=== PATIENT | male | born 1960 | race Caucasian/White ===

== ENCOUNTER 2017-09-27 16:24 | Observation (INO) | payer BC ==
[2017-09-27] MEDS: PSEUDOEPHEDRINE 30 MG TAB PO (17:00)
[2017-09-27] MEDS: ONDANSETRON 4MG/2ML VIAL (J2405) IV (17:16)
[2017-09-27] MEDS: MORPHINE 4 MG/ML 1ML VIAL (J2270) IV (17:16)
[2017-09-27] MEDS: PHENYLEPHRINE INJ 10MG/ML VIAL (J2370) SQ (19:21)
[2017-09-27 20:44] LABS: BASO # 0.1 10^3/uL (0.0-0.2); BASO % 0.8 % (0.0-1.0); EOS # 0.2 10^3/uL (0.0-0.50); EOS % 2.1 % (0.0-3.0); HEMATOCRIT 36.6 % (42.0-52.0); HEMOGLOBIN 12.7 g/dl (14.0-18.0); IMMATURE GRANULOCYTE % 0.5 % (0-3.0); LYMPH # 2.4 10^3/uL (1.5-4.5); LYMPH % 30.4 % (24.0-44.0); MEAN CORPUSCULAR HEMOGLOBIN 32.5 pg (27.0-33.0); MEAN CORPUSCULAR HGB CONC 34.7 g/dl (32.0-36.5); MEAN CORPUSCULAR VOLUME 93.6 fl (80.0-96.0); MONO # 0.6 10^3/uL (0.0-0.8); MONO % 7.1 % (0.0-5.0); NEUTROPHILS # 4.7 10^3/uL (1.8-7.7); NEUTROPHILS % 59.1 % (36.0-66.0); PLATELET COUNT, AUTOMATED 268 10^3/uL (150-450); RED BLOOD COUNT 3.91 10^6/uL (4.30-6.10); RED CELL DISTRIBUTION WIDTH 12.6 % (11.5-14.5)
[2017-09-27] MEDS: clonazePAM 1 MG TAB PO (21:00)
[2017-09-27 21:01] LABS: INR 0.97; PARTIAL THROMBOPLASTIN TIME 27.5 SECONDS (26.8-37.9)
[2017-09-27 21:09] LABS: ALBUMIN 3.6 GM/DL (3.2-5.2); ALBUMIN/GLOBULIN RATIO 1.33 (1.00-1.93); ALKALINE PHOSPHATASE 52 U/L (45-117); ALT/SGPT 39 U/L (12-78); ANION GAP 8 MEQ/L (8-16); BILIRUBIN,TOTAL 0.4 MG/DL (0.2-1.0); BLOOD UREA NITROGEN 14 MG/DL (7-18); CALCIUM LEVEL 8.3 MG/DL (8.5-10.1); CARBON DIOXIDE LEVEL 29 MEQ/L (21-32); CHLORIDE LEVEL 106 MEQ/L (98-107); CPK CREATINE PHOSPHOKINASE 64 U/L (39-308); CREATININE FOR GFR 0.79 MG/DL (0.70-1.30); GLOMERULAR FILTRATION RATE > 60.0 (>56); GLUCOSE, FASTING 91 MG/DL (70-100); MAGNESIUM LEVEL 2.1 MG/DL (1.8-2.4); POTASSIUM SERUM 3.9 MEQ/L (3.5-5.1); SODIUM LEVEL 143 MEQ/L (136-145); TOTAL PROTEIN 6.3 GM/DL (6.4-8.2); TROPONIN I < 0.02 NG/ML (< 0.10)
[2017-09-27 21:12] LABS: AST/SGOT 42 U/L (7-37); MB/CK RELATIVE INDEX 1.56 (< OR =4)
[2017-09-27] MEDS: zolPIDEM TARTRATE 5 MG TAB PO (22:30)
[2017-09-28] MEDS: ACETAMINOPHEN TAB 650MG DOSE (2X325MG) PO (01:04)
[2017-09-28 03:37] LABS: CPK CREATINE PHOSPHOKINASE 48 U/L (39-308); MB/CK RELATIVE INDEX 2.08 (< OR =4); TROPONIN I < 0.02 NG/ML (< 0.10)
[2017-09-28 06:52] LABS: BASO % 0.6 % (0.0-1.0); EOS # 0.2 10^3/uL (0.0-0.50); EOS % 2.2 % (0.0-3.0); HEMATOCRIT 36.9 % (42.0-52.0); HEMOGLOBIN 12.5 g/dl (14.0-18.0); IMMATURE GRANULOCYTE % 0.4 % (0-3.0); LYMPH # 1.8 10^3/uL (1.5-4.5); LYMPH % 26.5 % (24.0-44.0); MEAN CORPUSCULAR HEMOGLOBIN 32.1 pg (27.0-33.0); MEAN CORPUSCULAR HGB CONC 33.9 g/dl (32.0-36.5); MEAN CORPUSCULAR VOLUME 94.9 fl (80.0-96.0); MONO # 0.5 10^3/uL (0.0-0.8); MONO % 7.4 % (0.0-5.0); NEUTROPHILS # 4.3 10^3/uL (1.8-7.7); NEUTROPHILS % 62.9 % (36.0-66.0); PLATELET COUNT, AUTOMATED 246 10^3/uL (150-450); RED BLOOD COUNT 3.89 10^6/uL (4.30-6.10); RED CELL DISTRIBUTION WIDTH 12.6 % (11.5-14.5); WHITE BLOOD COUNT 6.9 10^3/uL (4.0-10.0)
[2017-09-28 07:18] LABS: ALBUMIN 3.3 GM/DL (3.2-5.2); ALBUMIN/GLOBULIN RATIO 1.22 (1.00-1.93); ALKALINE PHOSPHATASE 54 U/L (45-117); ALT/SGPT 31 U/L (12-78); ANION GAP 6 MEQ/L (8-16); AST/SGOT 20 U/L (7-37); BILIRUBIN,TOTAL 0.6 MG/DL (0.2-1.0); BLOOD UREA NITROGEN 15 MG/DL (7-18); CALCIUM LEVEL 8.2 MG/DL (8.5-10.1); CARBON DIOXIDE LEVEL 29 MEQ/L (21-32); CHLORIDE LEVEL 107 MEQ/L (98-107); CREATININE FOR GFR 0.93 MG/DL (0.70-1.30); GLOMERULAR FILTRATION RATE > 60.0 (>56); GLUCOSE, FASTING 113 MG/DL (70-100); MAGNESIUM LEVEL 2.2 MG/DL (1.8-2.4); POTASSIUM SERUM 4.2 MEQ/L (3.5-5.1); SODIUM LEVEL 142 MEQ/L (136-145)
[2017-09-28] MEDS: ESCITALOPRAM OXALATE 10 MG TAB (LEXAPRO) PO (08:48)
[2017-09-28] MEDS: ENOXAPARIN 40 MG/0.4 ML SYRINGE (J1650) SC (08:49)
[2017-09-28] MEDS: buPROPion (WELLBUTRIN SR) 100 MG SR TAB PO (08:49)
[2017-09-28 09:33] LABS: CPK CREATINE PHOSPHOKINASE 45 U/L (39-308); TROPONIN I < 0.02 NG/ML (< 0.10)
[2017-09-28 09:34] LABS: MB/CK RELATIVE INDEX 2.22 (< OR =4)
== END 2017-09-28 11:27 | disposition home or self-care (01) ==
LOC: M ED 16:24 → M ED INP 21:56
DX: N99.89 Other postprocedural complications and disorders of genitourinary system (principal); G90.09 Other idiopathic peripheral autonomic neuropathy; I10 Essential (primary) hypertension; R51 Headache; N48.33 Priapism, drug-induced; F32.9 Major depressive disorder, single episode, unspecified; F41.9 Anxiety disorder, unspecified; G47.00 Insomnia, unspecified; Z79.899 Other long term (current) drug therapy; Z88.6 Allergy status to analgesic agent
CPT/HCPCS: 54220